=== PATIENT | female | born 1955 | race Caucasian/White ===

== ENCOUNTER 2017-05-04 17:25 | Emergency (ER) | payer MEDICAID, SELFPAY ==
[2017-05-04 17:26] VITALS: BP 116/71; PULSE 81; RESP 16; TEMP 36.6; O2SAT 93; BMI 22.3
--- NOTE | 2017-05-04 18:08 | RAD_ITS ---
STUDY: X-RAY CHEST REASON FOR EXAM: Female, 61 years old. Cough. TECHNIQUE: Frontal and lateral views of the chest. COMPARISON: None. FINDINGS: Mild hyperexpansion of the lungs. Question of a 9 mm vague nodule in the right apex. CT scan is recommended. No infiltrates. No effusions. Normal size heart. Normal mediastinum and grayson. Normal visualized pulmonary arteries. Normal visualized aortic arch and descending thoracic aorta. Normal visualized thoracic spine. Normal visualized ribs, clavicles, and shoulders. There is no demonstrated abnormality of the visualized soft tissue structures of the upper abdomen. RAD/Chest PA and Lateral IMPRESSION: Possible mild COPD. Question of a 9 mm vague nodule in the right apex. CT scan is recommended. Electronically Signed: Sourav Martel MD at 20:21 EST , Service support ,
--- NOTE | 2017-05-04 18:08 | EKG12_ITS ---
Test Reason : SOB Blood Pressure : / mmHG Vent. Rate : 074 BPM Atrial Rate : 074 BPM P-R Int : 148 ms QRS Dur : 086 ms QT Int : 408 ms P-R-T Axes : 059 -13 054 degrees QTc Int : 452 ms Sinus rhythm with occasional Premature ventricular complexes Otherwise normal ECG Confirmed by BARBARA ALAN, JESSIE ([id number]), health editor AUGUSTO BATRES ([id number]) on 05/10/2017 2:03:37 PM Referred By: DEX Confirmed By:JESSIE JIMENEZ MD
--- NOTE | 2017-05-04 18:09 | CT_ITS ---
STUDY: CT ABDOMEN AND PELVIS WITH CONTRAST REASON FOR EXAM: Female, 61 years old. UTI. Back pain. RADIATION DOSAGE (If Supplied By Facility): CTDIvol = ( 9.49 ) mGy, DLP = ( 412.94 ) mGycm TECHNIQUE: Transaxial images were obtained from the dome of the diaphragm to the symphysis pubis with oral contrast. 100ML ml of Isovue 300 contrast was administered. Sagittal and coronal images were reconstructed. Individualized dose optimization techniques were used for this CT. COMPARISON: None. FINDINGS: The visualized lung bases are unremarkable. The visualized portions of the heart are within normal limits. Normal liver. Normal gallbladder and extrahepatic biliary system. Normal spleen. Normal pancreas. Normal bilateral adrenal glands. Normal right kidney. Left kidney has a 3 mm nonobstructing stone of the mid kidney. No stones. No mass. Normal visualized stomach. Normal small intestine. Normal colon. The appendix is visualized and appears normal. There is diffuse atherosclerotic calcification of the abdominal aorta, without a demonstrated aneurysm. Normal inferior vena cava. Normal retroperitoneum. Normal urinary bladder. There is absence of the uterus consistent with a prior hysterectomy. Normal abdominal wall. There are diffuse degenerative changes of the visualized lumbar spine. CT/Abdomen/Pelvis WITH Contrast IMPRESSION: No definite acute abnormality. Small nonobstructing stone of the mid left kidney. Electronically Signed: Sourva Martel MD at 20:21 EST , Service support ,
[2017-05-04 18:38] LABS: Bacteria 0 SEEN /hpf (None Seen); Mucous, Urine 0 SEEN /hpf (<or=2+); Red Blood Cells-Urine 0 SEEN /hpf (0-5); Squamous Epithelial Cells - UA 0 SEEN /hpf (5-10); White Blood Cells 0 SEEN /hpf (0-5)
[2017-05-04 18:41] LABS: Color, Urine Yellow (Yellow); Glucose, Dipstick Normal (Normal); Ketone-Dipstick 15 mg/dl (Negative); Leukocyte Esterase-Dipstick Negative /ul (Negative); Nitrite-Dipstick Negative (Negative); Occult Blood-Urine 10 /ul (Negative); Protein-Dipstick Negative (Negative); Urine Bilirubin Dipstick Negative (Negative); Urine Clarity Clear (Clear); Urine Urobilinogen Normal (Normal)
[2017-05-04 19:15] LABS: AST(SGOT) 14 U/L (15-37); Alanine Aminotransfer ALT/SGPT 16 U/L (13-56); Albumin, Serum 3.4 g/dL (3.2-5.0); Alkaline Phosphatase 62 U/L (45-117); Anion Gap 8 (5-15); BUN 10 mg/dL (7-18); BUN/Creat Ratio 16.1 RATIO (10-20); Calcium,Total 8.4 mg/dL (8.5-10.1); Chloride 104 mmol/L (98-107); Creatinine, Serum 0.62 mg/dL (0.55-1.02); EST Glomerular Filtration Rate 103 mL/min (>60); Est Glom Filt Rate - Afr Amer 125 mL/min (>60); Estimated Creatinine Clearance 82.28 ml/min; Globulin 3.4 g/dL (2.2-4.2); Glucose 104 mg/dL (74-106); Lipase 115 U/L (73-393); Potassium 3.8 mmol/L (3.5-5.1); Protein, Total 6.8 g/dL (6.4-8.2); Sodium Level 139 mmol/L (136-145); Thyroid Stim Hormone (TSH) 1.28 uIU/mL (0.358-3.74)
[2017-05-04 19:59] LABS: Absolute Lymphocyte Count 1.87 X10^3/ul (0.83-4.51); Absolute Neutrophil Count 4.1 X10^3/uL (2.0-7.7); Basophil# 0.03 X10^3/uL; Basophil% 0.4 % (0-1); Eosinophil# 0.05 X10^3/uL; Eosinophils% 0.7 % (0-5); Hematocrit 45.5 % (37-47); Hemoglobin 15.5 g/dl (12.0-15.0); Lymphocyte # 1.87 X10^3/ul (4.0); Mean Corp Hgb Conc 34.1 g/gl (32-36); Mean Corpuscular Hgb 31.8 pg (27.0-32.0); Mean Corpuscular Volume 93.4 fL (81-99); Mean Platelet Vol. 10.3 fl (6.2-12.0); Monocyte# 0.67 X10^3/uL; Neutrophil # 4.05 X10^3/uL (2.7-7.7); Neutrophil % 60.8 % (47-70); Platelet Count 203 K/mm3 (150-450); RBC Distribution Width CV 12.8 % (11.6-14.6); RBC Distribution Width SD 43.8 fl (35.1-43.9); Red Blood Count 4.87 M/mm3 (4.2-5.4); White Blood Count 6.7 K/mm3 (4.4-11.0)
[2017-05-04 20:00] LABS: POSITIVE COUNT NO; POSITIVE DIFFERENTIAL NO; POSITIVE MORPHOLOGY NO
--- NOTE | 2017-05-04 20:34 | CT_ITS ---
STUDY: CT CHEST WITHOUT CONTRAST REASON FOR EXAM: Female, 61 years old. Right lung nodule. RADIATION DOSAGE (If Supplied By Facility): CTDIvol = ( 8.52 ) mGy, DLP = ( 302.42 ) mGycm TECHNIQUE: Transaxial imaging was performed without the administration of intravenous contrast material. Individualized dose optimization techniques were used for this CT. COMPARISON: None. FINDINGS: There are emphysematous changes of the lungs with emphysematous blebs. There is mild diffuse fibrosis and septal thickening. There is a spiculated 1 cm nodule in the right upper lobe which is indeterminate, neoplasm is not excluded. No infiltrates. There is diffuse bronchial wall thickening consistent with chronic bronchitis. Scarring in the right posterior costophrenic angle. No effusions. There is no demonstrated pleural abnormality. Normal heart and pericardium. Normal mediastinum. Normal hilar regions. Normal unenhanced pulmonary arteries. Normal aorta arch and descending thoracic aorta. Normal osseous structures. There is no demonstrated abnormality of the visualized upper abdomen. CT/Chest without Contrast IMPRESSION: COPD. There is a spiculated 1 cm nodule in the right upper lobe which is indeterminate, neoplasm is not excluded. Consider PET scan and/or short interval follow-up CT scan in 3-4 months. Electronically Signed: Sourav Martel MD at 21:24 EST , Service support ,
[2017-05-04 22:16] VITALS: BP 136/73; PULSE 74; RESP 16; O2SAT 93
--- NOTE | 2017-05-04 22:34 | ED.VISSUMM ---
- ER Visit Summary Date of Service: 05/04/17 Chief Complaint: Dysuria and paresthesias History of Present Illness: The patient is a 61 F with no primary care physician. She reports that she has dysuria that began approximately 2 weeks ago. She was seen in urgent care and has been on Bactrim for 5 days. She reports that the frequency has improved. However, she still has dysuria. Patient reports that she has had diffuse paresthesias throughout her entire body off and on for the past 2 weeks. They are not present currently. On review of systems patient complains of chills. She denies fever or chest pain. She has a cough productive yellow sputum without blood. She has mild shortness of breath. She denies abdominal pain. She has had nausea without vomiting. No diarrhea, melena, or hematochezia. Physical Examination: Vitals: Stable. Afebrile. General: Well-nourished and well-developed. Head: Normocephalic atraumatic. Neck: Supple, no lymphadenopathy. No JVD. Nontender. Cardiovascular: Regular rate and rhythm. No murmurs. Respiratory: No respiratory distress. Clear to auscultation bilaterally. Abdominal: Soft, mild suprapubic tenderness to palpation, nondistended, normal bowel sounds. No guarding, rebound, or peritoneal signs. Back: Nontender. Extremities: Nontender, no edema. Skin: Normal color, no rash. Neurologic: Alert and oriented ?3. Cranial nerves II through XII are intact. Normal strength and sensation. Psych: Normal affect. Test Results: CBC is remarkable for a hemoglobin of 15.5. Chem-7 is more for calcium of 8.4. LFTs marked for an AST 14. UA is negative. TSH is 1.28. Chest x-ray two-view shows COPD and question of a 9 mm right upper lobe nodule. Physical this a CT of the chest was obtained and it shows a 1 cm spiculated nodule in the right upper lobe with neoplasm not excluded. They suggest a PET scan versus a follow-up CT in 3-4 months[address] She had a CT abdomen pelvis with p.o. and IV contrast shows no acute disease. She does have a 3 mm nonobstructive stone in the left kidney. Emergency Department Course and Treatment: Patient was given a liter of normal saline. She is resting comfortably. Treatment Plan: Patient reports that she is moving to [place] soon. I had a prolonged discussion with her about this nodule in her right upper lobe and the likelihood that it is cancer. She asked for referral to oncology. She is instructed to follow-up Dr. Still she is soon as possible. Return to the emergency department for any worsening symptoms. Disposition: To home in improved and stable condition. Impression:. Urethritis. 2. Spiculated nodule right upper lobe. This note was generated with [employer] dictation software. It may contain incorrect words, spelling, and punctuation that were not noted in review of the chart prior to signing ED Disposition - Plan for ED Patient: Disposition: Home or Assisted Living Chief Complaint: Complaint Instructions: ED Nodule Solitary Pulmonary Referrals: Jered Still DO [STAFF PHYSICIAN] - As soon as possible
[2017-05-04 22:50] VITALS: BP 136/73; PULSE 74; RESP 16; O2SAT 93
== END 2017-05-04 22:50 | disposition home or self-care (01) ==
LOC: ED 18:27
PROVIDERS: Emergency Medicine; Emergency Provider Emergency Medicine
DX: N34.2 Other urethritis (principal); N20.0 Calculus of kidney; J44.9 Chronic obstructive pulmonary disease, unspecified; R91.1 Solitary pulmonary nodule; R20.2 Paresthesia of skin; Z72.0 Tobacco use
CPT/HCPCS: 71046; 71250; 74177; 80048; 80053; 81001; 83690; 84443; 85025; 93005; 96360; 96361; 99284; J7040; Q9967; A4216

== ENCOUNTER → 2021-08-26 | Outpatient (CLI) | payer MEDICARE, MEDICAID, SELFPAY ==
--- NOTE | 2021-08-26 17:14 | MRI_ITS ---
EXAM: MR RIGHT LOWER EXTREMITY WITHOUT AND WITH INTRAVENOUS CONTRAST, ANKLE CLINICAL INDICATION: ST MASS R LATERAL HEEL TECHNIQUE: Multiplanar and multisequence MR images of the right ankle without and with intravenous contrast. This report was created using [employer] technology. CONTRAST: IV 18mL DOTAREM COMPARISON: None. FINDINGS: LIGAMENTS: ANTERIOR TALOFIBULAR: Unremarkable. Intact. POSTERIOR TALOFIBULAR: Unremarkable. Intact. ANTERIOR TIBIOFIBULAR: Unremarkable. Intact. POSTERIOR TIBIOFIBULAR: Unremarkable. Intact. CALCANEOFIBULAR: Unremarkable. Intact. DELTOID: Unremarkable. Intact. SPRING: Unremarkable. Intact. LISFRANC: Unremarkable. Intact. TENDONS: ACHILLES: There is a calcaneal spur. There is an enthesophyte involving the posterior superior calcaneus at the site of insertion of the Achilles tendon. FLEXOR: Unremarkable. Intact. EXTENSOR: Unremarkable. Intact. PERONEAL: Unremarkable. Intact. TIBIALIS ANTERIOR: Unremarkable. Intact. TIBIALIS POSTERIOR: Unremarkable. Intact. MUSCLES: Unremarkable. Normal bulk and signal. FLUID: Unremarkable. No joint effusion. SINUS TARSI: Unremarkable. Normal fat in the sinus tarsi. TARSAL TUNNEL: Unremarkable. PLANTAR FASCIA: Unremarkable. Intact. CARTILAGE: Unremarkable. No osteochondral lesion. Articular cartilage intact. BONES/JOINTS: Unremarkable. Talar dome intact. No fracture or marrow edema. OTHER SOFT TISSUES: At the level of the marker, there is a subcutaneous 10 mm nodule. This does have partial fat suppression. However there are cystic components on the T2 images. There is also enhancement which makes this less likely a lipoma. Due to its superficial location, biopsy could be performed for a tissue diagnosis of the lesion. MRI/Lower Ext Joint Only W/WO Cont IMPRESSION: At the level of the marker, there is a subcutaneous 10 mm nodule. This does have partial fat suppression. However there are cystic components on the T2 images. There is also enhancement which makes this less likely a lipoma. Due to its superficial location, biopsy could be performed for a tissue diagnosis of the lesion. Electronically Signed: Conrad Cortes MD at 21:47 EDT Reading Location ID and State: [facility] / [place] , Service support ,
[2021-08-26 17:25] LABS: CREATININE FINGERSTICK < 0.9 mg/dL (0.55-1.02); EGFR FINGERSTICK > 60.0000 mL/min (>60)
== END | disposition home or self-care (01) ==
LOC: MRI 16:54
PROVIDERS: PCP Family Medicine; Visit Provider Student in an Organized Health Care Education/Training Program
DX: D17.23 Benign lipomatous neoplasm of skin and subcutaneous tissue of right leg (principal)
CPT/HCPCS: 73723; A9575